=== PATIENT | female | born 1955 | race Asian ===

== ENCOUNTER 2021-06-28 18:50 | Emergency (ER) | payer MEDICARE, OTHER ==
[~2021-06-28] VITALS: Ht 154.9 cm; Wt 49.0 kg
[2021-06-28 19:00] VITALS: BP_SYST 172
[2021-06-28] MEDS ORDERED: ONDANSETRON 4 MG ODT TAB PO ONE (19:15)
[2021-06-28 19:34] LABS: CALCIUM 9.1 mg/dL (8.4-11.0); CREATININE 0.6 mg/dL (0.55-1.30); POTASSIUM 3.8 mmol/L (3.5-5.1)
[2021-06-28 19:36] LABS: BASOPHILS % (AUTO) 0.2 % (0.0-2.0); HEMATOCRIT 44.9 % (36-48); HEMOGLOBIN 15.8 g/dL (12.0-16.0); LYMPHOCYTES % (AUTO) 9.8 % (20.5-51.5); MEAN CORPUSCULAR HEMOGLOBIN 31 pg (27-31); MEAN CORPUSCULAR HGB CONC 35 % (32-36); MEAN CORPUSCULAR VOLUME 87 fL (79.0-98.0); MONOCYTES # (AUTO) 0.3 K/uL (0.0-1.0); MONOCYTES % (AUTO) 3.1 % (1.7-9.3); NEUTROPHILS % (AUTO) 86.9 % (40.0-70.0); PLATELET COUNT (AUTO) 296 K/uL (130-430); RED BLOOD CELL COUNT(AUTO) 5.14 MIL/uL (4.2-6.2); RED CELL DISTRIBUTION WIDTH 12.4 % (9.0-15.0); WHITE BLOOD COUNT (AUTO) 10.4 K/uL (4.8-10.8)
--- NOTE | 2021-06-28 22:15 | NUR ---
Note alexi in EDM - 06/29/21 at 0017 by [email or web address] Called pt x 3, no answer. Patient left without being seen. No further treatment provided. MARY GEE aware
[2021-06-29] MEDS ORDERED: ONDANSETRON 4 MG ODT TAB ONE (00:22)
--- NOTE | 2021-06-29 00:30 | NUR ---
Patient to ER CHAIR 1 to gown for evaluation. Side rails up.
--- NOTE | 2021-06-29 00:49 | NUR ---
ER at bedside examining patient.
--- NOTE | 2021-06-29 00:50 | NUR ---
PATIENT AAOX4 AND AMBULATORY FROM HOME C/O HEADACHE WITH N/V. PT HAD A HISTORY OF PITUITARY MASS AND BRAIN SX. VSS. CURRENTLY STATING 6/10 ON THE PAIN SCALE.
[2021-06-29] MEDS ORDERED: KETOROLAC TROMETHAMINE 30 MG VIAL IVP ONE (01:00)
[2021-06-29] MEDS ORDERED: NACL 0.9% 1,000 ML IV ONE (01:00)
[2021-06-29] MEDS ORDERED: ONDA-8 TL (02:06)
--- NOTE | 2021-06-29 02:14 | NUR ---
Patient given written and verbal discharge instructions and verbalizes understanding. DR.PEEK MARY GEE discussed with patient the results and treatment provided. Patient in stable condition. ID arm band removed. IV catheter removed intact and dressing applied, no active bleeding. Rx of ZOFRAN given. Patient educated on pain management and to follow up with PMD. Pain Scale . Opportunity for questions provided and answered. Medication side effect fact sheet provided.
[2021-06-29 02:15] VITALS: BP_SYST 172
== END 2021-06-29 02:15 | disposition home or self-care (01) ==
LOC: SED 18:50
DX: R51.9 Headache, unspecified (principal); Z88.5 Allergy status to narcotic agent; Z79.899 Other long term (current) drug therapy
CPT/HCPCS: 36415; 80048; 85025; 96361; 96374; 99283; J1885; J7030; Q0162